=== PATIENT | male | born 1970 | race African-American/Black ===

== ENCOUNTER 2017-12-22 17:39 | Emergency (ER) | payer MEDICAID ==
[~2017-12-22] VITALS: Ht 177.8 cm; Wt 73.0 kg
[2017-12-23] MEDS: DIPHENHYDRAMINE 50MG/ML VIAL IV ONE (00:30)
[2017-12-23] MEDS: ACETAMINOPHEN 325MG TABLET PO ONE (00:30)
[2017-12-23] MEDS: METOCLOPRAMIDE HCL 10MG/2ML VIAL IV ONE (00:30)
[2017-12-23] MEDS: KETOROLAC 15MG/ML VIAL IV ONE (00:30)
[2017-12-23] MEDS: SODIUM CHLORIDE 0.9% 250 ML IV ONE (00:30)
[2017-12-23 02:03] VITALS: BP 140/89
== END 2017-12-23 02:10 | disposition home or self-care (01) ==
LOC: ER 17:39
DX: R51 Headache (principal); R11.0 Nausea; R03.0 Elevated blood-pressure reading, without diagnosis of hypertension; F17.200 Nicotine dependence, unspecified, uncomplicated; J45.909 Unspecified asthma, uncomplicated
CPT/HCPCS: 96361; 96374; 96375; 99284; J1200; J1885; J2765; Z7610; J7050

== ENCOUNTER 2018-02-28 11:26 | Emergency (ER) | payer MEDICAID ==
[~2018-02-28] VITALS: Ht 177.8 cm; Wt 80.0 kg
[2018-02-28] MEDS ORDERED: IBUPROFEN 600MG TABLET PO ONE (12:00)
[2018-02-28] MEDS ORDERED: LIDOCAINE HCL 1% 20ML VIAL (Pyxis) INJ INFIL ONE (12:00)
[2018-02-28 17:40] VITALS: BP 148/92
== END 2018-02-28 17:41 | disposition home or self-care (01) ==
LOC: ER 11:26
DX: L05.01 Pilonidal cyst with abscess (principal); L03.317 Cellulitis of buttock; J45.909 Unspecified asthma, uncomplicated; F17.200 Nicotine dependence, unspecified, uncomplicated
CPT/HCPCS: 10060; 99283; J3490; Z7610

== ENCOUNTER 2018-03-02 17:16 | Emergency (ER) | payer MEDICAID ==
[~2018-03-02] VITALS: Ht 167.6 cm; Wt 77.0 kg
[2018-03-02 20:19] VITALS: BP 147/84
== END 2018-03-02 20:24 | disposition home or self-care (01) ==
LOC: ER 17:16
DX: Z48.00 Encounter for change or removal of nonsurgical wound dressing (principal)
CPT/HCPCS: 99283